=== PATIENT | male | born 1980 | race Caucasian/White ===

== ENCOUNTER 2024-04-15 12:51 | Emergency (ER) | payer SELFPAY ==
[~2024-04-15] VITALS: Ht 170.2 cm; Wt 91.0 kg
[2024-04-15 13:07] VITALS: O2SAT 98
[2024-04-15 13:33] LABS: BASOPHILS % 0.2 % (0.0-2.0); HEMATOCRIT. 47.6 % (42.0-52.0); HEMOGLOBIN. 15.9 g/dL (14.0-18.0); LYMPHOCYTES % 34.3 % (20.0-50.0); MEAN CORPUSCULAR HEMOGLOBIN 29.7 pg (28.0-32.0); MEAN CORPUSCULAR HGB CONC 33.4 g/dL (31.0-37.0); MEAN PLATELET VOLUME 8.6 fl (7.4-10.4); MONOCYTES % 8.2 % (2.0-8.0); NEUTROPHILS % 56.3 % (40.0-76.0); PLATELET 211 x1000/uL (130-400); RED BLOOD CELL COUNT 5.35 mill/uL (4.7-6.1); RED CELL DISTRIBUTION WIDTH 13.4 % (11.6-14.6); WHITE BLOOD COUNT 8.6 x1000/uL (4.5-11.0)
[2024-04-15 13:48] LABS: CARBON DIOXIDE 24 mEq/L (21-32); CHLORIDE 105 mEq/L (98-107); POTASSIUM 3.7 mEq/L (3.5-5.1); SODIUM 137 mEq/L (136-145)
[2024-04-15 13:49] LABS: CALCIUM 9.6 mg/dL (8.7-10.4)
[2024-04-15 13:49] LABS: CLARITY URINE CLEAR (CLEAR); COLOR URINE YELLOW (YELLOW); GLUCOSE URINE NEGATIVE (NEGATIVE); KETONES URINE NEGATIVE (NEGATIVE); LEUKOCYTE ESTERASE URINE NEGATIVE (NEGATIVE); NITRITE URINE NEGATIVE (NEGATIVE); OCCULT BLOOD URINE 3+ (NEGATIVE); PROTEIN URINE TRACE (NEGATIVE); SPECIFIC GRAVITY URINE 1.022 (1.005-1.030)
[2024-04-15 13:54] LABS: CREATININE 0.9 mg/dL (0.6-1.3); GLUCOSE 117 mg/dL (70-105); UREA NITROGEN BLOOD 11 mg/dL (9-23)
[2024-04-15 13:55] LABS: ALANINE AMINOTRANSFERASE 62 IU/L (10-49); ASPARTATE AMINOTRANSFERASE 36 IU/L (<34)
[2024-04-15 13:56] LABS: ALBUMIN 4.5 g/dL (3.2-4.8); BILIRUBIN DIRECT 0.1 mg/dL (<=3.0); BILIRUBIN TOTAL 0.5 mg/dL (0.1-1.0); PROTEIN TOTAL 7.6 g/dL (6.0-8.3)
[2024-04-15] MEDS ORDERED: KETOROLAC 15MG/ML VIAL IV ONE (14:00)
[2024-04-15] MEDS ORDERED: ONDANSETRON HCL 4MG/2ML INJ IV ONE (14:00)
[2024-04-15 14:22] LABS: SQUAMOUS EPITHELIAL CELL URINE NONE SEEN /lpf (RARE/1+)
[2024-04-15 14:23] LABS: MUCUS URINE TRACE /lpf (NONE/TRACE)
[2024-04-15 14:24] LABS: BACTERIA URINE TRACE; RBC URINE 50-100 /hpf (0-2)
[2024-04-15 14:25] LABS: WBC URINE 0-2 /hpf (0-2)
[2024-04-15] MEDS: LACTATED RINGERS 1,000 ML IV SCH (15:38)
[2024-04-15] MEDS: ONDANSETRON HCL 4MG/2ML INJ IV NR (15:44)
[2024-04-15] MEDS: KETOROLAC 15MG/ML VIAL IV NR (15:45)
[2024-04-15] MEDS: KETOROLAC 15MG/ML VIAL IV ONE (17:36)
[2024-04-15] MEDS: DIAZEPAM 5 MG/ML 2ML SYR IV ONE (17:37)
[2024-04-15] MEDS ORDERED: ONDA4TAB11 PO (19:33)
[2024-04-15] MEDS ORDERED: KETO10TA2 MT (19:33)
[2024-04-15 19:57] VITALS: BP 112/74; PULSE 60; RESP 18; TEMP 98.4
== END 2024-04-15 19:59 | disposition home or self-care (01) ==
LOC: ER 12:51
DX: N20.0 Calculus of kidney (principal); R79.89 Other specified abnormal findings of blood chemistry; Z98.890 Other specified postprocedural states
CPT/HCPCS: 80076; 80053; 81003; 83690; 85025; 86850; 86900; 86901; 36415; 74176; 93976; 76870; 96361; 96374; 96375; 96376; 99285; J3360; J1885; J2405; Z7610